=== PATIENT | female | born 1975 | race Caucasian/White ===

== ENCOUNTER 2019-06-20 22:53 | Emergency (ER) | payer OTHER ==
[2019-06-20] MEDS: Take Home: Naproxen 500 MG Tab, 4 Tab Pack PO ONE (23:49)
--- NOTE | 2019-06-21 08:00 | CR ---
0913-2031 RAD/RAD Forearm Right 2V EXAM: RAD Forearm Right 2V CLINICAL DATA: TRAUMA COMPARISON: NO PREVIOUS SIMILAR EXAM IS AVAILABLE. FINDINGS: No fracture or dislocation is seen. There is no radiopaque foreign body in the soft tissues. There is no air in the soft tissues. There is no cortical thickening or periosteal reaction either. IMPRESSION: NEGATIVE PLAIN FILM EXAM. Indio Ventura MD 06/21/19 0759 Thank you for allowing us to participate in the care of your patient.
--- NOTE | 2019-06-23 14:06 | EDM.PDOC ---
ED HPI GENERAL MEDICAL PROBLEM - General Chief Complaint: Upper Extremity Injury/Pain Stated Complaint: INJURY TO ARM Time Seen by Provider: 06/20/19 23:12 Source of Information: Reports: Patient History Limitations: Reports: No Limitations - History of Present Illness INITIAL COMMENTS - FREE TEXT/NARRATIVE: Pt. presents to ER with complaints of R forearm pain. Pt. states that she turned and walked into a steel pole at work several hours before coming to ER. She complains of mid forearm pain. She states that the discomfort radiates into her elbow and upper arm as well, but she denies any trauma to this area. Denies any numbness/tingling to the fingers. Did not strike her head. No neck pain or injury to other areas. Onset: Today Onset Date: 06/20/19 Location: Reports: Upper Extremity, Right Quality: Reports: Ache Improves with: Reports: Rest Worsens with: Reports: Movement Right Arm Pain Score (Numeric/FACES): 8 - Related Data Allergies Allergy/AdvReac Type Severity Reaction Status Date / Time No Known Allergies Allergy Verified 06/20/19 23:01 Home Meds: Home Meds . [No Known Home Meds] 06/20/19 [History] Past Medical History - Past Surgical History Female Surgical History: Reports: Hysterectomy, Tubal Ligation Social & Family History - Tobacco Use Smoking Status *Q: Current Every Day Smoker Years of Tobacco use: 30 Packs/Tins Daily: 0.5 ED ROS GENERAL - Review of Systems Review Of Systems: See Below Constitutional: Reports: No Symptoms HEENT: Reports: No Symptoms Respiratory: Reports: No Symptoms Cardiovascular: Reports: No Symptoms Endocrine: Reports: No Symptoms GI/Abdominal: Reports: No Symptoms : Reports: No Symptoms Musculoskeletal: Reports: Arm Pain Skin: Reports: No Symptoms Neurological: Reports: No Symptoms Psychiatric: Reports: No Symptoms Hematologic/Lymphatic: Reports: No Symptoms Immunologic: Reports: No Symptoms ED EXAM, GENERAL - Physical Exam Exam: See Below Exam Limited By: No Limitations General Appearance: Alert, WD/WN, No Apparent Distress Extremities: Normal Inspection, No Pedal Edema, Normal Capillary Refill, Limited Range of Motion, Other (exquisitely tender to palpation. No crepitus noted. CMS intact) Neurological: Alert Course - Vital Signs Last Recorded V/S: Last Vital Signs Temp 36.1 C 06/20/19 23:02 Pulse 78 06/20/19 23:02 Resp 16 06/20/19 23:02 BP 119/79 06/20/19 23:02 Pulse Ox 100 06/20/19 23:02 - Orders/Labs/Meds Meds: Medications Discontinued Medications Generic Name Dose Route Start Last Admin Trade Name Drake PRN Reason Stop Dose Admin Naproxen 1 packet 06/20/19 23:46 06/20/19 23:49 Take Home: Naproxen 500 Mg, 4 Tab Pack PO 06/20/19 23:47 1 packet ONETIME ONE Administration - Radiology Interpretation Free Text/Narrative:: x-rays of R forearm are negative for acute pathology Departure - Departure Time of Disposition: 00:00 Disposition: Home, Self-Care 01 Clinical Impression: Contusion of forearm, right - Discharge Information Instructions: Naproxen and naproxen sodium oral immediate-release tablets, Contusion, [id number] Referrals: PCP,None [Primary Care Provider] - Forms: ED Department Discharge Additional Instructions: Naproxen 500mg 1 twice daily as needed for pain Ice painful areas for 10-15 min every hour Recheck in clinic in 10-14 days, sooner if not gradually improving. Sepsis Event Note - Evaluation Sepsis Screening Result: No Definite Risk - Problem List Review Problem List Initiated/Reviewed/Updated: Yes - Assessment/Plan Plan: Naproxen 500mg 1 twice daily as needed for pain Ice painful areas for 10-15 min every hour Recheck in clinic in 10-14 days, sooner if not gradually improving.
== END 2019-06-20 23:56 | disposition home or self-care (01) ==
LOC: VM.ED 22:53
DX: S50.11XA Contusion of right forearm, initial encounter (principal); F17.210 Nicotine dependence, cigarettes, uncomplicated; W22.09XA Striking against other stationary object, initial encounter; Y93.01 Activity, walking, marching and hiking; Y92.89 Other specified places as the place of occurrence of the external cause; Y99.0 Civilian activity done for income or pay
CPT/HCPCS: 73090; 99283; A9270

== ENCOUNTER 2024-01-20 13:16 | Emergency (ER) | payer BC, OTHER ==
[2024-01-20] MEDS: Ketorolac 30 MG/ML SDV IM ONE (16:55)
[2024-01-20] MEDS: Cyclobenzaprine 10 MG Tab PO ONE (16:55)
== END 2024-01-20 17:10 | disposition home or self-care (01) ==
LOC: VM.ED 13:16
DX: M54.42 Lumbago with sciatica, left side (principal); F17.210 Nicotine dependence, cigarettes, uncomplicated; Z90.710 Acquired absence of both cervix and uterus
CPT/HCPCS: 72131; 96372; 99283; A9270-GY; J1885

== ENCOUNTER 2024-10-21 22:35 | Emergency (ER) | payer BC, MEDICAID ==
[2024-10-21] MEDS: Albuterol/Ipratropium 3.0-0.5 MG/3 ML Neb Soln NEB ONE (22:40)
[2024-10-21] MEDS: predniSONE 20 MG Tab PO ONE (23:14)
[2024-10-21] MEDS: Take Home: Albuterol 0.083% 2.5 MG/3 ML Neb Soln, 5 Neb Pack NEB ONE (23:14)
[2024-10-21] MEDS: Take Home: predniSONE 20 MG, 2 Tab Pack PO ONE (23:15)
== END 2024-10-21 23:25 | disposition home or self-care (01) ==
LOC: VM.ED 22:35
DX: J45.901 Unspecified asthma with (acute) exacerbation (principal); Z90.710 Acquired absence of both cervix and uterus
CPT/HCPCS: 94640; 99284; A9270; J7512; J7620

== ENCOUNTER 2025-03-21 11:27 | Emergency (ER) | payer MEDICAID | END 2025-03-21 12:20 | disposition home or self-care (01) | LOC: VM.ED 11:27 | DX: J45.21 Mild intermittent asthma with (acute) exacerbation (principal); Z90.710 Acquired absence of both cervix and uterus; Z79.899 Other long term (current) drug therapy | CPT/HCPCS: 94640; 99284; J7620; A9270-GY ==

== ENCOUNTER 2025-04-06 05:45 | Emergency (ER) | payer MEDICAID ==
[2025-04-06] MEDS ORDERED: Ketorolac 30 MG/ML SDV IM ONE (06:12)
[2025-04-06] MEDS: methylPREDNISolone Sodium Succinate 125 MG/2 ML SDV IM ONE (06:15)
[2025-04-06] MEDS: Albuterol 0.083% 2.5 MG/3 ML Neb Soln NEB ONE (06:20)
[2025-04-06] MEDS: Take Home: Albuterol 18 GM Inhaler, 1 Inhaler Pack INH PRN (06:28)
[2025-04-06] MEDS: Take Home: Albuterol/Ipratropium 3.0-0.5 MG/3 ML Neb Soln, 4 Neb Pack NEB ONE (06:28)
== END 2025-04-06 06:56 | disposition home or self-care (01) ==
LOC: VM.ED 05:45
DX: J45.909 Unspecified asthma, uncomplicated (principal); Z90.710 Acquired absence of both cervix and uterus
CPT/HCPCS: 94640; 96372; 99283; 99284; A9270; J2919; J7613; J7620